=== PATIENT | female | born 1955 | race Caucasian/White ===

== ENCOUNTER → 2017-03-18 | Outpatient (CLI) | payer OTHER | LOC: BMCIMAGING 10:25 | PROVIDERS: ATTEND Emergency Medicine | DX: R05 Cough (principal) ==

== ENCOUNTER 2017-03-19 19:37 | Emergency (ER) | payer OTHER ==
[2017-03-19 19:44] VITALS: TEMP 99.7
[2017-03-19 19:58] LABS: COLOR PALE YELLOW; LEUKOCYTE ESTERASE,URINE NEGATIVE (NEGATIVE); NITRITE,URINE NEGATIVE (NEGATIVE)
[2017-03-19] MEDS ORDERED: ONDANSETRON 4 MG/2 ML VIAL IVP ONE (21:10)
[2017-03-19] MEDS ORDERED: HYDROmorphONE/DILAUDID 1 MG/ML SYR IVP ONE (21:10)
[2017-03-19] MEDS ORDERED: NS 1,000 ML IV ONE (21:10)
[2017-03-19] MEDS ORDERED: ACETAMINOPHEN 500 MG TAB PO ONE (21:13)
--- NOTE | 2017-03-19 21:13 | EDPHY ---
H & P Stated Complaint: low back pain, fever Time Seen by Provider: 03/19/17 21:05 HPI/ROS: CHIEF COMPLAINT: Left flank pain, fever HISTORY OF PRESENT ILLNESS: The patient is a 61-year-old female who comes to the emergency department complaining of a fever left flank pain. She states that on Monday she started having a sinus congestion. She was seen yesterday in the urgent care and told that her flu test and strep swab were negative but that clinically she seemed to have the flu. She did have a flu vaccination this year. She was started on Tamiflu. Today she began having sharp left flank pain that reminds her of a previous pyelonephritis. She also has urinary frequency but no dysuria. No hematuria. No abdominal pain. No vomiting, nausea or diarrhea. No chest pain or shortness of breath. REVIEW OF SYSTEMS: Constitutional: denies: chills, fever, recent illness, recent injury EENTM: denies: blurred vision, double vision, nose congestion Respiratory: denies: cough, shortness of breath Cardiac: denies: chest pain, irregular heart rate, lightheadedness, palpitations Gastrointestinal/Abdominal: See HPI Genitourinary: See HPI Musculoskeletal: denies: joint pain, muscle pain Skin: denies: lesions, rash, jaundice, bruising Neurological: denies: headache, numbness, paresthesia, tingling, dizziness, weakness Hematologic/Lymphatic: denies: blood clots, easy bleeding, easy bruising Immunologic/allergic: denies: HIV/AIDS, transplant EXAM: GENERAL: Well-appearing, well-nourished and in no acute distress. HEAD: Atraumatic, normocephalic. EYES: Pupils equal round and reactive to light, extraocular movements intact, sclera anicteric, conjunctiva are normal. ENT: TMs normal, nares patent, oropharynx clear without exudates. Moist mucous membranes. NECK: Normal range of motion, supple without lymphadenopathy or JVD. LUNGS: Breath sounds clear to auscultation bilaterally and equal. No wheezes rales or rhonchi. HEART: Regular rate and rhythm without murmurs, rubs or gallops. ABDOMEN: Soft, nontender, normoactive bowel sounds. No guarding, no rebound. No masses appreciated. BACK: Mild right flank pain and tenderness, no bony tenderness. EXTREMITIES: Normal range of motion, no pitting or edema. No clubbing or cyanosis. NEUROLOGICAL: Cranial nerves II through XII grossly intact. Normal speech, normal gait. 5/5 strength, normal movement in all extremities, normal sensation PSYCH: Normal mood, normal affect. SKIN: Warm, dry, normal turgor, no visible rashes or lesions. 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, hip and shoulder surgerys - Family History Significant Family History: No pertinent family hx - Social History Smoking Status: Never smoked Alcohol Use: Sober Drug Use: None Constitutional: Initial Vital Signs Temperature (C) 37.6 C 03/19/17 19:42 Heart Rate 121 H 03/19/17 19:42 Respiratory Rate 18 03/19/17 19:42 Blood Pressure 119/87 H 03/19/17 19:42 O2 Sat (%) 94 03/19/17 19:42 O2 Delivery Mode Room Air Allergies/Adverse Reactions: bee venom protein (honey bee) Allergy (Verified 03/19/17 19:41) lisinopril Allergy (Verified 03/19/17 19:40) wasp Allergy (Uncoded 03/19/17 19:41) Home Medications: Medication Instructions Recorded Cephalexin [Keflex] 500 mg PO TID #21 cap 03/19/17 EPINEPHrine 03/19/17 ZYRTEC 03/19/17 Medical Decision Making - Diagnostics Imaging Results: Imaging Impressions Abdomen/Pelvis CT 03/19/17 21:11 Impression: 1. Left nephrolithiasis. 2. No ureteral calculi or perinephric inflammatory process. 3. Sigmoid diverticulosis. No evidence of acute diverticulitis or localized intra-abdominal inflammatory process. Findings discussed with Emergency Department physician, ANITHA TELLO at 22:13. Attention: This CT examination is specifically designed to evaluate patients who are clinically suspected of having acute obstructive uropathy. This examination does not use radiographic contrast, and as such, provides only a limited evaluation of the abdomen, pelvis and retroperitoneum. If there is further clinical suspicion for pathological conditions other than obstructive uropathy, a complete CT evaluation of the abdomen and pelvis utilizing intravenous, oral, and rectal contrast should be considered. ED Course/Re-evaluation: 10:43 p.[address]. we discussed the CT and lab results. The patient is reassured. I will treat her for pyelonephritis because she is symptomatic. She agrees with this plan. We discussed indications for returning. We will culture her urine. Differential Diagnosis: Partial list of the Differential diagnosis considered include but were not limited to; urinary tract infection, pyelonephritis, kidney stone, musculoskeletal pain, influenza, viral syndrome diverticulitis and although unlikely based on the history and physical exam, I also considered aneurysm, dissection, volvulus. I discussed these differential diagnoses and the plan with the patient as well as the usual and expected course. The patient understands that the diagnosis is provisional and that in medicine we are not always correct and that further workup is often warranted. Usual and customary warnings were given. All of the patient's questions were answered. The patient was instructed to return to the emergency department should the symptoms at all worsen or return, otherwise to followup with the physician as we discussed. - Data Points Laboratory Results: Laboratory Results 03/19/17 21:15 03/19/17 21:00 03/19/17 03/19/17 03/19/17 21:15 21:00 19:50 WBC 5.68 10^3/uL 10^3/uL (3.80-9.50) RBC 4.94 10^6/uL 10^6/uL (4.18-5.33) Hgb 15.2 g/dL g/dL (12.6-16.3) Hct 44.3 % % (38.0-47.0) MCV 89.7 fL fL (81.5-99.8) MCH 30.8 pg pg (27.9-34.1) MCHC 34.3 g/dL g/dL (32.4-36.7) RDW 13.6 % % (11.5-15.2) Plt Count 223 10^3/uL 10^3/uL (150-400) MPV 9.4 fL fL (8.7-11.7) Neut % (Auto) 63.3 % % (39.3-74.2) Lymph % (Auto) 21.7 % % (15.0-45.0) Stokes % (Auto) 12.5 % % (4.5-13.0) Eos % (Auto) 1.8 % % (0.6-7.6) Baso % (Auto) 0.5 % % (0.3-1.7) Nucleat RBC Rel Count 0.0 % % (0.0-0.2) Absolute Neuts (auto) 3.60 10^3/uL 10^3/uL (1.70-6.50) Absolute Lymphs (auto) 1.23 10^3/uL 10^3/uL (1.00-3.00) Absolute Monos (auto) 0.71 10^3/uL 10^3/uL (0.30-0.80) Absolute Eos (auto) 0.10 10^3/uL 10^3/uL (0.03-0.40) Absolute Basos (auto) 0.03 10^3/uL 10^3/uL (0.02-0.10) Absolute Nucleated RBC 0.00 10^3/uL 10^3/uL (0-0.01) Immature Gran % 0.2 % % (0.0-1.1) Immature Gran # 0.01 10^3/uL 10^3/uL (0.00-0.10) Sodium 133 mEq/L L mEq/L (134-144) Potassium 4.4 mEq/L mEq/L (3.5-5.2) Chloride 103 mEq/L mEq/L (97-110) Carbon Dioxide 21 mEq/l L mEq/l (22-31) Anion Gap 9 mEq/L mEq/L (8-16) BUN 14 mg/dL mg/dL (7-23) Creatinine 0.9 mg/dL mg/dL (0.6-1.0) Estimated GFR > 60 Glucose 104 mg/dL H mg/dL (70-100) Calcium 9.2 mg/dL mg/dL (8.5-10.4) Total Bilirubin 0.9 mg/dL mg/dL (0.1-1.4) Conjugated Bilirubin 0.3 mg/dL mg/dL (0.0-0.5) Unconjugated Bilirubin 0.6 mg/dL mg/dL (0.0-1.1) AST 33 IU/L IU/L (14-46) ALT 33 IU/L IU/L (9-52) Alkaline Phosphatase 85 IU/L IU/L (38-126) Total Protein 7.0 g/dL g/dL (6.3-8.2) Albumin 4.2 g/dL g/dL (3.5-5.0) Lipase 110.0 IU/L IU/L (23-300) Urine Color PALE YELLOW Urine Appearance CLEAR Urine pH 5.0 (5.0-7.5) Ur Specific Pandora 1.003 (1.002-1.030) Urine Protein NEGATIVE (NEGATIVE) Urine Ketones TRACE H (NEGATIVE) Urine Blood NEGATIVE (NEGATIVE) Urine Nitrate NEGATIVE (NEGATIVE) Urine Bilirubin NEGATIVE (NEGATIVE) Urine Urobilinogen NEGATIVE EU EU (0.2-1.0) Ur Leukocyte Esterase NEGATIVE (NEGATIVE) Urine RBC 1-3 /hpf /hpf (0-3) Urine WBC 1-3 /hpf /hpf (0-3) Ur Epithelial Cells TRACE /lpf /lpf (NONE-1+) Urine Glucose NEGATIVE (NEGATIVE) Medications Given: Discontinued Medications Acetaminophen (Tylenol) 1,000 mg PO EDNOW ONE Stop: 03/19/17 21:14 Last Admin: 03/19/17 21:26 Dose: 1,000 mg Hydromorphone HCl (Dilaudid) 0.5 mg IVP EDNOW ONE Stop: 03/19/17 21:11 Last Admin: 03/19/17 21:25 Dose: 0.5 mg Ceftriaxone Sodium/Dextrose (Rocephin 1 Gm (Premix)) 50 mls @ 100 mls/hr IV EDNOW ONE PRN Reason: Protocol Stop: 03/19/17 21:40 Last Admin: 03/19/17 21:28 Dose: 50 mls Sodium Chloride (Ns) 1,000 mls @ 0 mls/hr IV ONCE ONE PRN Reason: Wide Open Stop: 03/19/17 21:11 Last Admin: 03/19/17 21:25 Dose: 1,000 mls Ondansetron HCl (Zofran) 4 mg IVP EDNOW ONE Stop: 03/19/17 21:11 Last Admin: 05/28/17 21:25 Dose: 4 mg Departure - Departure Disposition: Home, Routine, Self-Care Clinical Impression: Urinary tract infection Qualifiers: Urinary tract infection type: acute pyelonephritis Qualified Code(s): N10 - Acute pyelonephritis Condition: Fair Instructions: Urinary Tract Infection in Women (ED) Referrals: Jenny Melton MD [Primary Care Provider] - As per Instructions Prescriptions: Cephalexin [Keflex] 500 mg PO TID #21 cap
[2017-03-19 21:33] LABS: % IMMATURE GRANULYOCYTES 0.2 % (0.0-1.1); ABSOLUTE IMMATURE GRANULOCYTES 0.01 10^3/uL (0.00-0.10); ADD DIFF? NO; ADD MORPH? NO; ADD SCAN? NO; ATYPICAL LYMPHOCYTE FLAG 10 (0-99); FRAGMENT RBC FLAG 0 (0-99); HEMATOCRIT 44.3 % (38.0-47.0); HEMOGLOBIN 15.2 g/dL (12.6-16.3); LEFT SHIFT FLG 0 (0-99); LIPEMIA HEMOLYSIS FLAG 90 (0-99); MEAN CELL HEMOGLOBIN 30.8 pg (27.9-34.1); MEAN CELL HEMOGLOBIN CONCENTR. 34.3 g/dL (32.4-36.7); MEAN CELL VOLUME 89.7 fL (81.5-99.8); MEAN PLATELET VOLUME 9.4 fL (8.7-11.7); PLATELET CLUMPS FLAG 0 (0-99); PLATELET COUNT 223 10^3/uL (150-400); RED BLOOD CELL COUNT 4.94 10^6/uL (4.18-5.33); RED CELL DISTRIBUTION WIDTH 13.6 % (11.5-15.2)
[2017-03-19 22:15] LABS: ALANINE AMINOTRANSFERASE 33 IU/L (9-52); ALBUMIN 4.2 g/dL (3.5-5.0); ALKALINE PHOSPHATASE 85 IU/L (38-126); ANION GAP 9 mEq/L (8-16); ASPARTATE AMINOTRANSFERASE 33 IU/L (14-46); BILIRUBIN,TOTAL 0.9 mg/dL (0.1-1.4); BILIRUBIN-CONJUGATED 0.3 mg/dL (0.0-0.5); BILIRUBIN-UNCONJUGATED 0.6 mg/dL (0.0-1.1); CALCIUM 9.2 mg/dL (8.5-10.4); CARBON DIOXIDE 21 mEq/l (22-31); CHLORIDE 103 mEq/L (97-110); CREATININE 0.9 mg/dL (0.6-1.0); GLOMERULAR FILTRATION RATE > 60; GLUCOSE 104 mg/dL (70-100); POTASSIUM 4.4 mEq/L (3.5-5.2); SODIUM 133 mEq/L (134-144)
[2017-03-19 23:34] VITALS: BP 110/80; PULSE 86; RESP 16; O2SAT 95
== END 2017-03-19 23:37 | disposition home or self-care (01) ==
DX: N10 Acute pyelonephritis (principal); B96.89 Other specified bacterial agents as the cause of diseases classified elsewhere; J45.909 Unspecified asthma, uncomplicated; I10 Essential (primary) hypertension
CPT/HCPCS: 96365; J0696; J1170; J2405

== ENCOUNTER 2017-04-29 10:31 | Inpatient (IN) | payer OTHER ==
[2017-04-29] MEDS ORDERED: fentaNYL 100 MCG/2 ML INJ IVP ONE (10:41)
[2017-04-29] MEDS ORDERED: ONDANSETRON 4 MG/2 ML VIAL IVP ONE ×2 (10:41→12:10)
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
[2017-04-29 10:55] LABS: % IMMATURE GRANULYOCYTES 0.5 % (0.0-1.1); ABSOLUTE IMMATURE GRANULOCYTES 0.04 10^3/uL (0.00-0.10); ADD DIFF? NO; ADD MORPH? NO; ADD SCAN? NO; ATYPICAL LYMPHOCYTE FLAG 10 (0-99); FRAGMENT RBC FLAG 0 (0-99); HEMATOCRIT 45.5 % (38.0-47.0); HEMOGLOBIN 15.1 g/dL (12.6-16.3); LEFT SHIFT FLG 0 (0-99); LIPEMIA HEMOLYSIS FLAG 80 (0-99); MEAN CELL HEMOGLOBIN 30.3 pg (27.9-34.1); MEAN CELL HEMOGLOBIN CONCENTR. 33.2 g/dL (32.4-36.7); MEAN CELL VOLUME 91.4 fL (81.5-99.8); MEAN PLATELET VOLUME 9.7 fL (8.7-11.7); PLATELET CLUMPS FLAG 0 (0-99); PLATELET COUNT 315 10^3/uL (150-400); RED BLOOD CELL COUNT 4.98 10^6/uL (4.18-5.33); RED CELL DISTRIBUTION WIDTH 13.9 % (11.5-15.2)
[2017-04-29] MEDS ORDERED: IOPAMIDOL (ISOVUE-300) 100 ML BTL ONE (10:57)
[2017-04-29 11:07] LABS: ANION GAP 14 mEq/L (8-16); CALCIUM 9.9 mg/dL (8.5-10.4); CARBON DIOXIDE 21 mEq/l (22-31); CHLORIDE 107 mEq/L (97-110); CREATININE 1.1 mg/dL (0.6-1.0); GLOMERULAR FILTRATION RATE 51; GLUCOSE 164 mg/dL (70-100); POTASSIUM 4.8 mEq/L (3.5-5.2); SODIUM 142 mEq/L (134-144)
[2017-04-29] MEDS ORDERED: HYDROmorphONE/DILAUDID 1 MG/ML SYR ONE (12:00)
[2017-04-29] MEDS ORDERED: ONDANSETRON 4 MG/2 ML VIAL ONE (12:00)
[2017-04-29] MEDS ORDERED: HYDROmorphONE/DILAUDID 1 MG/ML SYR IVP ONE ×2 (12:09→14:49)
[2017-04-29] MEDS ORDERED: ONDANSETRON DISINTEGRATING 4 MG TAB PO PRN (13:44)
[2017-04-29] MEDS ORDERED: NALOXONE HCL 0.4 MG/ML INJ IVP PRN (13:44)
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
[2017-04-29] MEDS ORDERED: KETAMINE 500 MG in D5W 500 ML IV SCH (13:45)
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
[2017-04-29] MEDS: LORazepam 2 MG/ML INJ IVP PRN ×2 (15:34→21:24)
[2017-04-29] MEDS: KETOROLAC 15 MG/1 ML SDV IVP SCH (17:30)
[2017-04-29] MEDS ORDERED: traZODone 50 MG TAB PO PRN (17:52)
[2017-04-29] MEDS ORDERED: MELATONIN 3 MG TAB PO PRN (17:52)
[2017-04-29] MEDS: FAMOTIDINE 20 MG/NACL 50 ML IV SCH (21:25)
[2017-04-29] MEDS: oxyCODONE IR 5 MG TAB PO PRN (21:25)
[2017-04-30] MEDS: KETOROLAC 15 MG/1 ML SDV IVP SCH ×2 (00:30→05:48)
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
[2017-04-30] MEDS: oxyCODONE IR 5 MG TAB PO PRN ×3 (10:44→20:37)
[2017-04-30] MEDS: CHOLECALCIFEROL VIT D3 1,000 UNITS TAB PO SCH (10:44)
[2017-04-30] MEDS: CYCLOBENZAPRINE 10 MG TAB PO PRN ×2 (10:44→18:28)
[2017-04-30] MEDS: FAMOTIDINE 20 MG/NACL 50 ML IV SCH (10:59)
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
[2017-04-30] MEDS: LORazepam 2 MG/ML INJ IVP PRN (22:04)
[2017-05-01] MEDS: CYCLOBENZAPRINE 10 MG TAB PO PRN ×3 (02:59→15:53)
[2017-05-01] MEDS: oxyCODONE IR 5 MG TAB PO PRN ×4 (02:59→16:42)
[2017-05-01] MEDS: CHOLECALCIFEROL VIT D3 1,000 UNITS TAB PO SCH (08:27)
--- NOTE | 2017-05-01 20:51 | TRAUMAPN ---
Assessment/Plan: PAD#2 05/01/2017 Assessment: Neuro intact Pain control inadequate. ( left " scapula " pain is, I feel her rib fractures.) No stool yet Tertiary review completed without new findings Plan: Adjust meds and consider thoracic epidural if needed. Bowel protocol ordered Subjective: My left scapula hurts Objective: Vital Signs Temp Pulse Resp BP Pulse Ox 36.5 C 85 16 114/71 95 05/01/17 16:00 05/01/17 16:00 05/01/17 16:00 05/01/17 16:00 05/01/17 16:00 04/30/17 05/01/17 05/02/17 05:59 05:59 05:59 Intake Total 400 200 Output Total 700 Balance -300 200 Physical Exam - Physical Exam General Appearance: WD/WN, alert, moderate distress EENT: PERRL/EOMI, normal ENT inspection Neck: non-tender, full range of motion, supple, normal inspection Respiratory: lungs clear, normal breath sounds, pain on movement Cardiac/Chest: regular rate, rhythm, edema Abdomen: normal bowel sounds, non-tender, soft Pelvic Exam: deferred Rectal: deferred Back: Normal inspection Skin: normal color, warm/dry, other (abrasions over both patellas and left anterior novoa) Lymphatic: no adenopathy Extremities: normal range of motion, non-tender, normal inspection Neuro/Psych: no motor/sensory deficits, alert, normal mood/affect, oriented x 3 Time Spent w/Patient (minutes): 25
[2017-05-01] MEDS ORDERED: LIDOCAINE 5% 1 EA PATCH TD SCH (21:00)
[2017-05-01] MEDS: HYDROmorphONE/DILAUDID 1 MG/ML SYR IVP PRN (21:25)
[2017-05-01] MEDS: ACETAMINOPHEN 500 MG TAB PO SCH (21:27)
[2017-05-01] MEDS: KETOROLAC 30 MG/1 ML SDV IVP SCH (23:24)
[2017-05-01] MEDS: HYDROmorphONE/DILAUDID 2 MG TAB PO PRN (23:56)
[2017-05-02] MEDS: ACETAMINOPHEN 500 MG TAB PO SCH ×3 (06:35→20:57)
[2017-05-02] MEDS: KETOROLAC 30 MG/1 ML SDV IVP SCH ×4 (06:36→23:02)
[2017-05-02] MEDS ORDERED: LACTULOSE 20 GM/30 ML UDCUP PO PRN (06:48)
[2017-05-02] MEDS ORDERED: BISACODYL 10 MG SUPP PR PRN (06:48)
[2017-05-02] MEDS ORDERED: MAGNESIUM HYDROXIDE 30 ML UDCUP PO PRN (06:48)
[2017-05-02] MEDS: CHOLECALCIFEROL VIT D3 1,000 UNITS TAB PO SCH (08:23)
[2017-05-02] MEDS: CYCLOBENZAPRINE 10 MG TAB PO PRN ×2 (08:26→17:43)
[2017-05-02] MEDS: SENNOSIDES/DOCUSATE SODIUM TAB PO SCH ×2 (08:26→20:59)
[2017-05-02] MEDS: HYDROmorphONE/DILAUDID 2 MG TAB PO PRN ×5 (08:27→20:59)
[2017-05-02] MEDS: POLYETHYLENE GLYCOL 3350 17 GM PKT PO PRN (08:27)
[2017-05-02] MEDS ORDERED: PATCH REMOVAL 1 EA PATCH TD SCH (09:00)
[2017-05-02] MEDS: LIDOCAINE 5% 1 EA PATCH TD SCH (09:44)
[2017-05-02] MEDS ORDERED: PNEUMOCOCCAL 0.5ML VACCINE VIAL IM ONE (10:18)
[2017-05-02] MEDS: HYDROmorphONE/DILAUDID 1 MG/ML SYR IVP PRN ×2 (12:12→23:08)
--- NOTE | 2017-05-02 18:40 | TRAUMAPN ---
Assessment/Plan: PAD#2 05/01/2017 Assessment: Neuro intact Pain control inadequate. ( left " scapula " pain is, I feel her rib fractures.) No stool yet Tertiary review completed without new findings Plan: Adjust meds and consider thoracic epidural if needed. Bowel protocol ordered PAD#3 05/02/2017 Assessment: Neuro intact Pain control much improved E to A changes in left base. increased pleural fluid. IS only to 1000 Flatus but no stool yet Plan: Work on IS Increase ambulation Subjective: flatus but no stool Pain control improved Objective: Vital Signs Temp Pulse Resp BP Pulse Ox 36.7 C 76 16 133/94 H 97 05/02/17 15:58 05/02/17 15:58 05/02/17 15:58 05/02/17 15:58 05/02/17 15:58 05/01/17 05/02/17 05/03/17 05:59 05:59 05:59 Intake Total 200 500 Output Total 200 50 Balance 200 300 -50 Physical Exam - Physical Exam General Appearance: alert, mild distress EENT: PERRL/EOMI Neck: non-tender, supple, normal inspection Respiratory: chest non-tender (E to A changes in left base), normal breath sounds Cardiac/Chest: regular rate, rhythm Abdomen: normal bowel sounds, non-tender, soft Pelvic Exam: deferred Rectal: deferred Back: Normal inspection Skin: normal color, warm/dry Extremities: normal range of motion, non-tender, normal inspection Neuro/Psych: no motor/sensory deficits, alert, normal mood/affect, oriented x 3 Time Spent w/Patient (minutes): 25
[2017-05-02] MEDS: PATCH REMOVAL 1 EA PATCH TD SCH (21:01)
[2017-05-03] MEDS: KETOROLAC 30 MG/1 ML SDV IVP SCH ×3 (05:07→17:47)
[2017-05-03] MEDS: ACETAMINOPHEN 500 MG TAB PO SCH ×3 (05:07→20:50)
[2017-05-03] MEDS: CYCLOBENZAPRINE 10 MG TAB PO PRN ×3 (05:07→21:47)
[2017-05-03] MEDS: HYDROmorphONE/DILAUDID 2 MG TAB PO PRN ×5 (05:07→21:47)
[2017-05-03] MEDS: CHOLECALCIFEROL VIT D3 1,000 UNITS TAB PO SCH (07:52)
[2017-05-03] MEDS: SENNOSIDES/DOCUSATE SODIUM TAB PO SCH ×2 (07:52→20:52)
[2017-05-03] MEDS: POLYETHYLENE GLYCOL 3350 17 GM PKT PO PRN (07:53)
[2017-05-03] MEDS: LIDOCAINE 5% 1 EA PATCH TD SCH (07:53)
--- NOTE | 2017-05-03 16:39 | TRAUMAPN ---
Assessment/Plan: PAD#2 05/01/2017 Assessment: Neuro intact Pain control inadequate. ( left " scapula " pain is, I feel her rib fractures.) No stool yet Tertiary review completed without new findings Plan: Adjust meds and consider thoracic epidural if needed. Bowel protocol ordered PAD#3 05/02/2017 Assessment: Neuro intact Pain control much improved E to A changes in left base. increased pleural fluid. IS only to 1000 Flatus but no stool yet Plan: Work on IS Increase ambulation PAD#4 05/03/2017 Assessment: Still has a complaint of slight shortness of breath and still requires 2LPM O2. CXR improved Pain control improving E to A changes less impressive Has moved bowels Plan: Continue to work on pain control/pulmonary function - may need oxygen concentrator at home. Subjective: Slowly improving Objective: Vital Signs Temp Pulse Resp BP Pulse Ox 36.6 C 83 14 115/84 H 97 05/03/17 07:33 05/03/17 07:33 05/03/17 07:33 05/03/17 07:33 05/03/17 07:33 05/02/17 05/03/17 05/04/17 05:59 05:59 05:59 Intake Total 500 400 Output Total 200 50 Balance 300 -50 400 Physical Exam - Physical Exam General Appearance: WD/WN, alert, mild distress EENT: PERRL/EOMI, normal ENT inspection Neck: non-tender, full range of motion, supple, normal inspection Respiratory: lungs clear, other (E to A changes in left lower lung horner but less extensive than yesterday) Cardiac/Chest: regular rate, rhythm Abdomen: normal bowel sounds, non-tender, soft Pelvic Exam: deferred Rectal: deferred Back: Normal inspection Skin: normal color, warm/dry Extremities: normal range of motion, non-tender, normal inspection Neuro/Psych: no motor/sensory deficits, alert, normal mood/affect, oriented x 3 Time Spent w/Patient (minutes): 25
[2017-05-03] MEDS: PATCH REMOVAL 1 EA PATCH TD SCH (20:51)
[2017-05-04] MEDS: HYDROmorphONE/DILAUDID 1 MG/ML SYR IVP PRN (00:07)
[2017-05-04] MEDS: HYDROmorphONE/DILAUDID 2 MG TAB PO PRN ×5 (01:44→14:53)
[2017-05-04] MEDS: ACETAMINOPHEN 500 MG TAB PO SCH ×2 (05:29→14:52)
[2017-05-04] MEDS: KETOROLAC 30 MG/1 ML SDV IVP SCH ×3 (05:30→12:58)
[2017-05-04 07:25] VITALS: RESP 14; TEMP 98.5
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
[2017-05-04] MEDS: LIDOCAINE 5% 1 EA PATCH TD SCH (09:05)
[2017-05-04] MEDS: SENNOSIDES/DOCUSATE SODIUM TAB PO SCH (09:07)
[2017-05-04] MEDS: CHOLECALCIFEROL VIT D3 1,000 UNITS TAB PO SCH (09:07)
[2017-05-04] MEDS: CYCLOBENZAPRINE 10 MG TAB PO PRN (14:53)
[2017-05-04 15:36] VITALS: BP 111/74; PULSE 87; O2SAT 95
--- NOTE | 2017-05-04 19:51 | PDIAF ---
- Diagnosis Diagnosis: rib fractures Code Status: Full Code - Medication Management Discharge Medications: Medications to Continue on Transfer Cholecalciferol Vit D3 [Vitamin D3 (*)] 2,000 units PO DAILY 04/29/17 [Last Taken 04/29/17] Cyclobenzaprine [Flexeril 10 MG (*)] 10 mg PO TID PRN 04/29/17 [Last Taken 04/22] EPINEPHrine KIT [Epipen Kit] 0.3 mg IM ONCE PRN 04/29/17 [Last Taken Unknown] Herbals/Supplements -Info Only 1 ea PO DAILY 04/29/17 [Last Taken 04/27/17] Melatonin [Melatonin 3 MG (*)] 3 mg PO HS PRN 04/29/17 [Last Taken 04/27/17] traZODone [traZODONE 50MG (*)] 50 mg PO HS PRN 04/29/17 [Last Taken 04/27/17] Cyclobenzaprine [Flexeril 10 MG (*)] 10 mg PO TID PRN #60 tab 05/04/17 [Last Taken Unknown] HYDROmorphone HCL [Dilaudid 2 mg (*)] 2 - 4 mg PO Q4HRS PRN #60 tab 05/04/17 [ Last Taken Unknown] Discharge Medications: Refer to the Discharge Home Medication list for PRN reason. - Orders Services needed: Home Care, Registered Nurse Home Care Face to Face: I certify that this patient was under my care and that I had the required [id number] encounter meeting the encounter requirements on the discharge day. My findings support the fact that the patient is homebound as defined in CMS Chapter 7 Medicare Benefits Manual 30.1.1, The condition of the patient is such that there exists a normal inability to leave home and consequently, leaving home would require a considerable and taxing effort. Diet Recommendation: no restrictions on diet Activity/Weight Bearing Restrictions: no heavy lifting pushing or pulling greater than 15 lbs for 4 weeks - Follow Up Care Current Providers and Referrals: Patient,NotPresent [Unknown] - As per Instructions Nathalia Escalante PA [Physician Veneer Sander] - follow up in 2 weeks
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
== END 2017-05-04 18:16 | disposition home or self-care (01) | DRG 86 ==
LOC: EDUNIT# → F2N 15:27 → F3N 05-01 14:29
PROVIDERS: ADMIT Surgery; ATTEND Surgery
PROC: 0HQ0XZZ Repair Scalp Skin, External Approach (ICD-10-PCS; principal; 2017-04-29)
DX: S06.6X0A Traumatic subarachnoid hemorrhage without loss of consciousness, initial encounter (principal); S22.42XA Multiple fractures of ribs, left side, initial encounter for closed fracture; S01.81XA Laceration without foreign body of other part of head, initial encounter; S80.211A Abrasion, right knee, initial encounter; S80.212A Abrasion, left knee, initial encounter; S60.512A Abrasion of left hand, initial encounter; S50.312A Abrasion of left elbow, initial encounter; F51.04 Psychophysiologic insomnia; V18.4XXA Pedal cycle driver injured in noncollision transport accident in traffic accident, initial encounter; Y93.55 Activity, bike riding; Y92.488 Other paved roadways as the place of occurrence of the external cause; Z23 Encounter for immunization
CPT/HCPCS: 82947-QW; 92507-GN; 92523-GN; 96374; 97110-GP; 97116-GP; 97161-GP; 97165-GO; 97530-GP; 97535-GO; G8987-GO-CI; G8987-GO-CJ; G8988-GO-CI; G8989-GO-CI; J1170; J1885; J2060; J2405; J3010; Q9967

== ENCOUNTER 2017-05-28 19:50 | Emergency (ER) | payer OTHER ==
[2017-05-28 20:11] VITALS: TEMP 98.1
[2017-05-28] MEDS ORDERED: ONDANSETRON 4 MG/2 ML VIAL IVP ONE (20:17)
[2017-05-28] MEDS ORDERED: HYDROmorphONE/DILAUDID 1 MG/ML SYR IVP ONE (20:17)
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
[2017-05-28 20:40] LABS: % IMMATURE GRANULYOCYTES 0.4 % (0.0-1.1); ABSOLUTE IMMATURE GRANULOCYTES 0.03 10^3/uL (0.00-0.10); ADD DIFF? NO; ADD MORPH? NO; ADD SCAN? NO; ATYPICAL LYMPHOCYTE FLAG 0 (0-99); FRAGMENT RBC FLAG 0 (0-99); HEMATOCRIT 36.6 % (38.0-47.0); HEMOGLOBIN 12.3 g/dL (12.6-16.3); LEFT SHIFT FLG 0 (0-99); LIPEMIA HEMOLYSIS FLAG 80 (0-99); MEAN CELL HEMOGLOBIN 30.3 pg (27.9-34.1); MEAN CELL HEMOGLOBIN CONCENTR. 33.6 g/dL (32.4-36.7); MEAN CELL VOLUME 90.1 fL (81.5-99.8); MEAN PLATELET VOLUME 9.8 fL (8.7-11.7); PLATELET CLUMPS FLAG 0 (0-99); PLATELET COUNT 312 10^3/uL (150-400); RED BLOOD CELL COUNT 4.06 10^6/uL (4.18-5.33); RED CELL DISTRIBUTION WIDTH 13.4 % (11.5-15.2)
[2017-05-28 20:50] LABS: ANION GAP 10 mEq/L (8-16); CALCIUM 9.5 mg/dL (8.5-10.4); CARBON DIOXIDE 25 mEq/l (22-31); CHLORIDE 104 mEq/L (97-110); GLOMERULAR FILTRATION RATE 57; GLUCOSE 131 mg/dL (70-100); POTASSIUM 4.2 mEq/L (3.5-5.2); SODIUM 139 mEq/L (134-144)
[2017-05-28] MEDS ORDERED: IOPAMIDOL (ISOVUE-300) 100 ML BTL ONE (20:51)
[2017-05-28 20:53] LABS: INR 0.94 (0.83-1.16); PROTIME(PATIENT) 12.5 SEC (12.0-15.0)
[2017-05-28 20:54] LABS: APTT 30.8 SEC (23.0-38.0)
[2017-05-28 21:23] VITALS: BP 120/92; PULSE 90; RESP 15; O2SAT 96
== END 2017-05-28 22:05 | disposition home or self-care (01) ==
DX: S20.212D Contusion of left front wall of thorax, subsequent encounter (principal); I10 Essential (primary) hypertension; V18.0XXD Pedal cycle driver injured in noncollision transport accident in nontraffic accident, subsequent encounter
CPT/HCPCS: 82947-QW; 96374; J1170; J2405; Q9967